=== PATIENT | female | born 1955 | race Caucasian/White ===

== ENCOUNTER → 2017-01-25 | Outpatient (CLI) | payer OTHER ==
--- NOTE | 2017-01-27 12:09 | OR ---
ADMIT: 01/25/2017 RM/LOC: [facility] MR#: [id number] [address] [id number] LEW SMITHHuong Akbar [address] [place] [address] Operative/Delivery Room Report SEX: F AGE: 61 : 1955 SURGERY DATE: 01/25/2017 SURGEON: Janak Knox MD PREPROCEDURE DIAGNOSIS: Right hip degenerative joint disease. POSTPROCEDURE DIAGNOSIS: Right hip degenerative joint disease. PROCEDURE: Right hip intra-articular injection under fluoroscopy. ANESTHESIA: Local anesthetic. ESTIMATED BLOOD LOSS: None. COMPLICATIONS: None. CONDITION: Stable from fluoroscopy suite. INDICATIONS: The patient is a 61-year-old female with degenerative joint disease of the hip as well as a fairly significant degenerative changes and degenerative disc disease of the lumbar spine. She does have groin pain. She also has back pain, buttock pain, and some pain that goes down the leg as well. We talked about trying an injection into the hip to see how much of the symptoms will get relieved with this. She would like to try. After discussing risks and benefits with her, she did want to proceed with this. DESCRIPTION OF PROCEDURE: After informed consent was obtained, the patient was brought to the fluoroscopy suite, placed on the fluoroscopy table in supine position. We then got a good AP x-ray of the hip. We found our landmarks ASIS and superior pubis and made an X on the skin at a line ADMIT: 01/25/2017 RM/LOC: [facility] MR#: [id number] [id number] ULIS JOEL L [address] [place] [address] Operative/Delivery Room Report SEX: F AGE: 61 : 1955 intersecting these. We then placed a pin here and under fluoroscopy it was noted to be a good starting point. We then prepped the skin with ChloraPrep. We used a 25-gauge needle and injected some local 50:50 mixture of 0.5% Marcaine plain and 1% lidocaine plain in the tract for a local anesthetic. Once this was completed, we then placed a 22-gauge spinal needle under fluoroscopic visualization into the hip joint. We took a fluoroscopic view to confirm intra-articular placement. We then injected the hip joint with 2 mL of 0.5% Marcaine plain, 2 mL of 1% lidocaine plain, and 2 mL of Kenalog. The patient tolerated this well. We then cleaned the area and placed a Band-Aid. The patient was taken from the fluoroscopy suite in stable condition. We will check her back in the office in about 3 to 4 weeks and see how this is working for her. Janak Knox MD/ megan JOB #: [id number] CC: Janak Knox, Attending Physician Luis Hale, Family Physician
== END | disposition home or self-care (01) ==
LOC: RAD.S 13:47
DX: M16.11 Unilateral primary osteoarthritis, right hip (principal)